=== PATIENT | female | born 1990 | race Caucasian/White ===

== ENCOUNTER 2020-05-01 13:03 | Outpatient (REF) | payer MEDICAID, SELFPAY ==
--- NOTE | 2020-05-01 13:09 | US_ITS ---
EXAMINATION: OBSTETRICAL ULTRASOUND, FIRST TRIMESTER HISTORY: 30-year-old at the 12.1 weeks of gestation NT screening COMPARISON: 03/25/2020 TECHNIQUE: Real time transabdominal imaging with color and M-mode Doppler. FINDINGS: A single, live IUP CRL of 51.5 mm c/w 11.6wks is noted. Heart Rate: 158 beats per minute. Normal yolk sac seen. NT was 0.76.mm. NB Present The embryo appears sonographically wnl for this GA. Left ovary is within normal limits. Right ovary could not be visualized. GESTATIONAL AGE: 1. Established GA: 12.1 wks 2. GA from [facility]: 11.6 wks ESTIMATED DATE OF DELIVERY: 1. Established YOBANI: 11/12/2020 2. YOBANI from [facility]: 11/14/2020 IMPRESSION: 1. A single live IUP 2. Size equals dates 3. NT of 0.76 mm MFM Consultation: I reviewed the ultrasound findings along with significance of NT measurement. The NT of less than 3mm is generally reassuring. However, the sensitivity for T21 detection is only 60%. I reviewed the availability of serum aneuploidy screening which includes cell-free DNA and placental protein based tests. I discussed the sensitivity, false-positive rate, and other limitations associated with each test. I also reviewed the availability of invasive diagnostic tests that are associated small but definite risk of miscarriage. We also reviewed the differences between screening tests and diagnostic tests. After our discussion, she opted for the First trimester screening that is based on cell-free DNA or non-invasive testing (NIPT). The result will be faxed to your office in approximately 7 days. A follow up at 18 weeks for survey has been scheduled. Thank you very much for this referral. Majority of this visit was spent reviewing her care and counselling her in face to face time: Time spent 20 min.
== END 2020-05-01 13:04 | disposition home or self-care (01) ==
LOC: HO.US 13:03
PROVIDERS: Visit Provider Advanced Practice Midwife
DX: Z34.91 Encounter for supervision of normal pregnancy, unspecified, first trimester (principal)
CPT/HCPCS: 76813

== ENCOUNTER 2020-05-07 09:00 | Outpatient (REF) | payer MEDICAID, SELFPAY ==
[2020-05-07 15:03] LABS: CT PCR NOT DETECTED (Not Detect.); NG PCR NOT DETECTED (Not Detect.)
[2020-05-08 15:33] LABS: BV Int Neg Control Negative (Negative); BV Int Pos Control Positive (Positive)
[2020-05-11 19:37] LABS: HPV mRNA E6/E7 Not Detected (Not Detected)
== END 2020-05-07 09:01 | disposition home or self-care (01) ==
LOC: HO.LAB 09:00
PROVIDERS: PCP Internal Medicine; Referring Provider Internal Medicine; Visit Provider Advanced Practice Midwife
DX: O99.210 Obesity complicating pregnancy, unspecified trimester (principal); Z3A.00 Weeks of gestation of pregnancy not specified
CPT/HCPCS: 87480; 87491; 87510; 87591; 87624; 87625; 87660; 88141; 88142

== ENCOUNTER 2020-05-19 10:11 | Outpatient (REF) | payer MEDICAID, SELFPAY ==
[2020-05-19 13:32] LABS: Glucose 1 Hour PP 50gm Dose 145 mg/dL (60-140)
== END 2020-05-19 10:12 | disposition home or self-care (01) ==
LOC: HO.LAB 10:11
PROVIDERS: PCP Internal Medicine; Visit Provider Advanced Practice Midwife
DX: Z13.89 Encounter for screening for other disorder (principal)

== ENCOUNTER 2020-05-26 06:32 | Outpatient (REF) | payer MEDICAID, SELFPAY ==
[2020-05-26 07:38] LABS: Glucose Fasting 83 mg/dL (60-99)
[2020-05-26 08:14] LABS: Glucose 1 Hour 127 mg/dL
[2020-05-26 09:49] LABS: Glucose 2 Hour 114 mg/dL
[2020-05-26 10:43] LABS: Glucose 3 Hour 100 mg/dL
== END 2020-05-26 06:33 | disposition home or self-care (01) ==
LOC: HO.LAB 06:32
PROVIDERS: Advanced Practice Midwife; PCP Internal Medicine; Visit Provider Advanced Practice Midwife
DX: O99.810 Abnormal glucose complicating pregnancy (principal)
CPT/HCPCS: 82951

== ENCOUNTER → 2020-06-04 08:49 | Outpatient (BNVA) | payer MEDICAID, SELFPAY | PROVIDERS: Visit Provider Advanced Practice Midwife | DX: Z76.89 Persons encountering health services in other specified circumstances (principal) ==

== ENCOUNTER 2020-06-19 15:27 | Outpatient (REF) | payer MEDICAID, SELFPAY ==
--- NOTE | 2020-06-19 15:31 | US_ITS ---
EXAMINATION: US OBSTETRICAL CLINICAL INFORMATION: 30-year-old at 18.3 weeks of gestation Suspected anomaly COMPARISON: 05/01/2020 TECHNIQUE: Real-time transabdominal ultrasound was performed using C1-5 megahertz transducer. FINDINGS: A single, active, fetus is seen in breech presentation. The placenta is posterior without previa, and the amniotic fluid volume is wnl. MEASUREMENTS: 1. Biparietal Diameter: 3.8 cm; 17.5 wks 2. Occipital Frontal Diameter: 5.6 cm 3. Head Circumference: 15.5 cm; 18.4 wks 4. Abdominal Circumference: 13.5 cm; 19.0 wks 5. Femur Length: 2.7 cm; 18.3 wks 6. Humerus Length: 2.6 cm; 18.1 wks 7. Tibia Length: 2.2 cm; 18.0 wks 8. Ulna Length: 2.4 cm; 18.4 wks 9. Lateral ventricle: 0.6 cm 10. Cerebellum: 1.9 cm; 19.5 wks 11. Cisterna Magna: 0.3 cm 12. Nuchal Fold: 4.1 mm 13. Heart Rate: 135 beats per minute Rt ovary: normal Lt ovary: normal Cervical length 4.1 cm on T/A. GESTATIONAL AGE: 1. Established GA: 19.1 wks 2. GA from [facility]: 18.3 wks ESTIMATED DATE OF DELIVERY: 1. Established YOBANI: 11/12/2020 2. YOBANI from [facility]: 11/17/2020 ANATOMY: The visualized anatomy includes but not limited to: 1. Cranium: Normal 2. Intracranial anatomy: cavum septum pellucidi, lateral ventricles, choroid plexus, cerebellum, posterior fossa, third and fourth ventricles. 3. face: orbits, lip/palate, profile, nasal bone 4. Heart: four-chamber view of the heart, ventricular septum, foramen ovale, pulmonary vein, left and right outflow tracts, three-vessel view, 3 vessel trachea view, aortic and ductal arches, situs.. 5. Diaphragm: Normal 6. Abdominal wall: Normal 7. Cord Insertion: Normal 8. Spine: Cervical, thoracic, lumbar, sacral. 9. Stomach: Normal size and shape 10. Right Kidney: Normal 11. Left Kidney: Normal 12. 3 vessel cord: Normal 13. Upper extremity: Open hands, fifth digit. 14. Lower extremity: Tibia, fibula, bilateral feet. 15. Bladder: Normal 16. Genitalia: Male, patient aware US/US OB /maternal detail IMPRESSION: 1. Single, living, intrauterine with appropriate biometry. 2. Normal survey DISCUSSION: I reviewed today's ultrasound findings. We discussed the limitations of ultrasound in diagnosing aneuploidy and other congenital abnormalities. I reviewed the differences between screening test and diagnostic test. Amniocentesis was discussed and declined. She was informed that the baseline incidence of congenital abnormalities is approximately 3-5%. Not all these conditions are diagnosable in utero. RECOMMENDATIONS: 1. Follow-up when necessary. Thank you for allowing me to participate in her care. Visiting time 25 minutes. Majority of this visit was spent reviewing and discussing her care.
== END 2020-06-19 15:28 | disposition home or self-care (01) ==
LOC: HO.US 15:27
PROVIDERS: Visit Provider Advanced Practice Midwife
DX: O35.9XX0 Maternal care for (suspected) fetal abnormality and damage, unspecified, not applicable or unspecified (principal); Z3A.18 18 weeks gestation of pregnancy
CPT/HCPCS: 76811

== ENCOUNTER → 2020-06-30 13:47 | Outpatient (BNVA) | payer MEDICAID, SELFPAY | PROVIDERS: Visit Provider Advanced Practice Midwife | DX: Z76.89 Persons encountering health services in other specified circumstances (principal) ==

== ENCOUNTER → 2020-07-28 10:33 | Outpatient (BNVA) | payer MEDICAID, SELFPAY | PROVIDERS: Visit Provider Advanced Practice Midwife | DX: Z34.92 Encounter for supervision of normal pregnancy, unspecified, second trimester (principal) | CPT/HCPCS: 81003; 99212 ==

== ENCOUNTER → 2020-08-05 15:46 | Outpatient (BNVA) | payer MEDICAID, SELFPAY | PROVIDERS: PCP Internal Medicine; Visit Provider Internal Medicine Pulmonary Disease | DX: G47.33 Obstructive sleep apnea (adult) (pediatric) (principal); E66.9 Obesity, unspecified | CPT/HCPCS: 99202 ==

== ENCOUNTER → 2020-08-24 15:12 | Outpatient (BNVA) | payer MEDICAID, SELFPAY | PROVIDERS: PCP Internal Medicine; Visit Provider Advanced Practice Midwife | DX: O36.60X0 Maternal care for excessive fetal growth, unspecified trimester, not applicable or unspecified (principal) | CPT/HCPCS: 81003; 99212 ==

== ENCOUNTER 2020-09-10 07:37 | Outpatient (REF) | payer MEDICAID, SELFPAY | END 2020-09-10 07:38 | disposition home or self-care (01) | LOC: HO.LAB 07:37 | PROVIDERS: PCP Internal Medicine; Visit Provider Advanced Practice Midwife | DX: Z34.93 Encounter for supervision of normal pregnancy, unspecified, third trimester (principal) | CPT/HCPCS: 81003; 90471; 90715; 99212 ==

== ENCOUNTER 2020-09-12 07:24 | Outpatient (REF) | payer MEDICAID, SELFPAY ==
[2020-09-12 08:00] LABS: Hematocrit 32.4 % (37-47); Hemoglobin 10.8 g/dl (12.0-16.0); Mean Corpuscular HGB Conc 33.3 g/dl (31.0-35.0); Mean Corpuscular Hemoglobin 28.7 pg (27.0-33.0); Mean Corpuscular Volume 86.2 fL (80-98); Mean Platelet Volume 9.9 fL (9.4-12.3); Platelet Count 261 X10*3/uL (160-400); Red Blood Count 3.76 X10*6/uL (4.20-5.50); Red Cell Distribution Width 13.9 % (11.0-16.0); White Blood Count 7.9 X10*3/uL (4.8-10.8)
[2020-09-12 08:18] LABS: Glucose Fasting 85 mg/dL (60-99)
[2020-09-12 09:19] LABS: Glucose 1 Hour 162 mg/dL
[2020-09-12 10:22] LABS: Glucose 2 Hour 129 mg/dL
[2020-09-12 11:36] LABS: Glucose 3 Hour 104 mg/dL
[2020-09-14 08:35] LABS: HIV AB/AG Nonreactive (Nonreactive); HIV Num 1 0.06 S/CO (0.00-0.99)
[2020-09-14 09:03] LABS: Syphilis Screen Nonreactive (Nonreactive)
== END 2020-09-12 07:25 | disposition home or self-care (01) ==
LOC: HO.LAB 07:24
PROVIDERS: Advanced Practice Midwife; PCP Internal Medicine; Visit Provider Advanced Practice Midwife
DX: Z34.92 Encounter for supervision of normal pregnancy, unspecified, second trimester (principal); Z20.2 Contact with and (suspected) exposure to infections with a predominantly sexual mode of transmission
CPT/HCPCS: 36415; 82951; 85027; 86780; 87389

== ENCOUNTER 2020-09-17 12:26 | Outpatient (REF) | payer MEDICAID, SELFPAY ==
--- NOTE | ~2020-09-17 | US_ITS ---
EXAMINATION: US OBSTETRICAL FOLLOWUP WITH BIOPHYSICAL PROFILE CLINICAL INFORMATION: Excessive growth. COMPARISON: Ultrasound OB 06/19/2020 TECHNIQUE: Real-time transabdominal imaging with color and M-mode Doppler. POSITION: Breech. PLACENTA: Posterior. AMNIOTIC FLUID INDEX: 21.74 cm MEASUREMENTS: The initial dating ultrasound dated provided an estimated date of delivery of 11/11/2020. This would project today to a of 32 weeks and 1 day. biometric measurements are as follows: Biparietal Diameter: 7.80 cm (31 weeks and 3 days) Occipital Frontal Diameter: 10.34 cm (32 weeks and 2 days) Head Circumference: 28.91 cm (31 weeks and 6 days) Abdominal Circumference: 28.34 cm (32 weeks and 3 days) Femur Length: 6131 cm (32 weeks and 5 days) The standard deviation for the above measurements is +/- 3 weeks. ESTIMATED WEIGHT: The EFW is 1962 grams +/- 287 grams (4 lbs 5 oz +/- 10 oz). This is at the 52 LMP percentile. BIOPHYSICAL PROFILE: Biophysical profile is performed over 30 minutes with assessment of breathing, gross body movement, tone, and qualitative amniotic fluid volume. Each matrix is scored 0 or 2, depending if the metric is present. Maximum total score possible is 8. Motion: 2 Tone: 2 Breathin Amniotic Fluid: 2 Total score: 8 HR: 163 bpm US/US OB follow up IMPRESSION: 1. Single intrauterine gestation in breech position with posterior placenta. 2. EFW: 1962 g. 3. ECHO: 21.74 cm. 4. BPP score: 8 (scale 0-8).
== END 2020-09-17 12:27 | disposition home or self-care (01) ==
LOC: HO.US 12:26
PROVIDERS: Visit Provider Advanced Practice Midwife
DX: O36.60X0 Maternal care for excessive fetal growth, unspecified trimester, not applicable or unspecified (principal)
CPT/HCPCS: 76816

== ENCOUNTER → 2020-09-25 10:39 | Outpatient (BNVA) | payer MEDICAID, SELFPAY | PROVIDERS: PCP Internal Medicine; Visit Provider Advanced Practice Midwife | DX: Z34.93 Encounter for supervision of normal pregnancy, unspecified, third trimester (principal); Z3A.33 33 weeks gestation of pregnancy | CPT/HCPCS: 81003; 99212 ==

== ENCOUNTER → 2020-10-09 15:09 | Outpatient (BNVA) | payer MEDICAID, SELFPAY | PROVIDERS: PCP Internal Medicine; Visit Provider Obstetrics & Gynecology | DX: Z34.93 Encounter for supervision of normal pregnancy, unspecified, third trimester (principal); Z3A.35 35 weeks gestation of pregnancy | CPT/HCPCS: 99212 ==

== ENCOUNTER 2020-10-23 14:52 | Outpatient (REF) | payer MEDICAID, SELFPAY ==
[2020-10-24 15:10] LABS: CT PCR NOT DETECTED (Not Detect.); NG PCR NOT DETECTED (Not Detect.)
== END 2020-10-23 14:53 | disposition home or self-care (01) ==
LOC: HO.LAB 14:52
PROVIDERS: PCP Internal Medicine; Visit Provider Advanced Practice Midwife
DX: Z34.93 Encounter for supervision of normal pregnancy, unspecified, third trimester (principal)
CPT/HCPCS: 81003; 87081; 87491; 87591; 99212

== ENCOUNTER → 2020-10-30 14:38 | Outpatient (BNVA) | payer MEDICAID, SELFPAY | PROVIDERS: PCP Internal Medicine; Visit Provider Advanced Practice Midwife | DX: Z34.93 Encounter for supervision of normal pregnancy, unspecified, third trimester (principal); Z3A.38 38 weeks gestation of pregnancy | CPT/HCPCS: 81003; 99212 ==

== ENCOUNTER → 2020-11-06 13:35 | Outpatient (BNVA) | payer MEDICAID, SELFPAY | PROVIDERS: PCP Internal Medicine; Visit Provider Advanced Practice Midwife | DX: Z34.93 Encounter for supervision of normal pregnancy, unspecified, third trimester (principal); Z3A.39 39 weeks gestation of pregnancy | CPT/HCPCS: 81003; 99212 ==

== ENCOUNTER → 2020-11-13 14:53 | Outpatient (BNVA) | payer MEDICAID, SELFPAY | PROVIDERS: Visit Provider Advanced Practice Midwife | DX: Z34.93 Encounter for supervision of normal pregnancy, unspecified, third trimester (principal); Z3A.40 40 weeks gestation of pregnancy | CPT/HCPCS: 81003; 99212 ==

== ENCOUNTER → 2021-02-02 13:02 | Outpatient (BNVA) | payer MEDICAID, SELFPAY | PROVIDERS: Visit Provider Advanced Practice Midwife | DX: Z39.1 Encounter for care and examination of lactating mother (principal); O99.215 Obesity complicating the puerperium; Z30.011 Encounter for initial prescription of contraceptive pills; Z30.012 Encounter for prescription of emergency contraception; Z79.899 Other long term (current) drug therapy | CPT/HCPCS: 99212 ==

== ENCOUNTER 2021-08-03 12:02 | Outpatient (REF) | payer MEDICAID, SELFPAY ==
[2021-08-05 20:51] LABS: TS Negative Control Passed; TS Panel A 0; TS Panel B 1; TS Positive Control Passed; TSpotTB Negative (Negative)
== END 2021-08-03 12:03 | disposition home or self-care (01) ==
LOC: HO.10HDL 12:02
PROVIDERS: Visit Provider Internal Medicine
DX: Z02.1 Encounter for pre-employment examination (principal); Z11.0 Encounter for screening for intestinal infectious diseases
CPT/HCPCS: 36415; 86481

== ENCOUNTER 2022-10-19 10:05 | Outpatient (REF) | payer MEDICAID, SELFPAY ==
[2022-10-19 10:49] LABS: MANUAL DIFF FLAG NO
[2022-10-19 11:06] LABS: Basophils Absolute Auto 0.1 X10*3/uL (0.0-0.2); Basophils Percent Auto 0.5 % (0-2); Eosinophils Absolute Auto 0.5 X10*3/uL (0.0-0.4); Eosinophils Percent Auto 4.8 % (0-4); Hemoglobin 13.5 g/dl (12.0-16.0); Imm Gran Abs Auto 0.02 X10*3/uL (0.00-0.03); Imm Gran Pct Auto 0.2 % (0.0-0.4); Lymphocytes Absolute Auto 2.9 X10*3/uL (1.2-4.9); Mean Corpuscular HGB Conc 32.9 g/dl (31.0-35.0); Mean Corpuscular Hemoglobin 27.1 pg (27.0-33.0); Mean Corpuscular Volume 82.3 fL (80.0-98.0); Monocytes Absolute Auto 0.5 X10*3/uL (0.1-1.2); Monocytes Percent Auto 5.4 % (2-11); Neutrophils Absolute Auto 5.7 x10*3/uL (2.0-8.3); Neutrophils Percent Auto 59.1 % (45-73); Platelet Count 326 X10*3/uL (160-400); Red Blood Count 4.98 X10*6/uL (4.20-5.50); Red Cell Distribution Width 13.8 % (11.0-16.0); White Blood Count 9.6 X10*3/uL (4.8-10.8)
[2022-10-19 11:14] LABS: Estimated Average Glucose 108 mg/dL; Hemoglobin A1c % 5.4 %
[2022-10-19 11:30] LABS: Alanine Aminotransferase 24 U/L (0-31); Albumin Level 4.2 g/dL (3.5-5.0); Alkaline Phosphatase 126 U/L (39-117); Anion Gap 11 (12-20); Aspartate Amino Transferase 20 U/L (5-31); Bilirubin Total 0.4 mg/dL (0.0-1.0); Blood Urea Nitrogen 9 mg/dL (9-16); Calcium 9.1 mg/dL (8.4-10.2); Carbon Dioxide 27 mmol/L (22-29); Chloride 109 mmol/L (96-108); Estimated Glomerular Filt Rate > 60; Glucose Random 86 mg/dL (60-115); Potassium 4.1 mmol/L (3.3-5.1); Sodium 143 mmol/L (135-145)
[2022-10-19 11:49] LABS: Free T4 (Free Thyroxine) 0.89 ng/dL (0.71-1.85); Thyroid Stimulating Hormone 1.07 uIU/mL (0.32-4.0)
== END 2022-10-19 10:06 | disposition home or self-care (01) ==
LOC: HO.10HDL 10:05
PROVIDERS: Visit Provider Internal Medicine
DX: I10 Essential (primary) hypertension (principal); R42 Dizziness and giddiness; Z86.32 Personal history of gestational diabetes; Z83.49 Family history of other endocrine, nutritional and metabolic diseases
CPT/HCPCS: 36415; 80053; 83036; 84439; 84443; 85025; 86140

== ENCOUNTER 2022-11-02 11:54 | Outpatient (REF) | payer MEDICAID, SELFPAY ==
[2022-11-02 13:41] LABS: MANUAL DIFF FLAG NO
[2022-11-02 13:50] LABS: Basophils Percent Auto 0.5 % (0-2); Eosinophils Absolute Auto 0.4 X10*3/uL (0.0-0.4); Eosinophils Percent Auto 4.9 % (0-4); Hematocrit 41.8 % (37.0-47.0); Hemoglobin 13.4 g/dl (12.0-16.0); Imm Gran Abs Auto 0.02 X10*3/uL (0.00-0.03); Imm Gran Pct Auto 0.2 % (0.0-0.4); Lymphocytes Absolute Auto 2.2 X10*3/uL (1.2-4.9); Lymphocytes Percent Auto 25.3 % (20-40); Mean Corpuscular HGB Conc 32.1 g/dl (31.0-35.0); Mean Corpuscular Hemoglobin 27.1 pg (27.0-33.0); Mean Corpuscular Volume 84.4 fL (80.0-98.0); Mean Platelet Volume 10.4 fL (9.4-12.3); Monocytes Absolute Auto 0.5 X10*3/uL (0.1-1.2); Monocytes Percent Auto 6.1 % (2-11); Neutrophils Absolute Auto 5.6 x10*3/uL (2.0-8.3); Platelet Count 328 X10*3/uL (160-400); Red Blood Count 4.95 X10*6/uL (4.20-5.50); Red Cell Distribution Width 13.8 % (11.0-16.0); White Blood Count 8.8 X10*3/uL (4.8-10.8)
[2022-11-02 15:30] LABS: Anion Gap 12 (12-20); Blood Urea Nitrogen 12 mg/dL (9-16); Calcium 9.1 mg/dL (8.4-10.2); Carbon Dioxide 24 mmol/L (22-29); Chloride 110 mmol/L (96-108); Estimated Glomerular Filt Rate > 60; Glucose Random 77 mg/dL (60-115); Potassium 4.1 mmol/L (3.3-5.1); Sodium 142 mmol/L (135-145)
[2022-11-02 15:40] LABS: Free T4 (Free Thyroxine) 0.92 ng/dL (0.71-1.85)
== END 2022-11-02 11:55 | disposition home or self-care (01) ==
LOC: HO.10HDL 11:54
PROVIDERS: Visit Provider Internal Medicine
DX: J45.909 Unspecified asthma, uncomplicated (principal); E04.9 Nontoxic goiter, unspecified
CPT/HCPCS: 36415; 80048; 84439; 84443; 85025

== ENCOUNTER → 2023-10-05 09:29 | Outpatient (BNVA) | payer MEDICAID, SELFPAY | PROVIDERS: PCP Internal Medicine; Visit Provider Physician Assistant Surgical ==

== ENCOUNTER 2023-10-25 12:47 | Outpatient (AMB) | payer MEDICAID, SELFPAY ==
--- OUTSIDE RECORDS SUMMARY | 2023-10-25 12:49 | XMS_ITS | Continuity of Care Document ---
[facility] Address [address] [place] [address]- Care Team Providers Care Channel Process Supervisor Name Role Phone Julio César Sandoval MD Primary Care Physician [phone] Encounter [facility] Date(s): 03/31/20 - 04/07/20 [facility] [employer] [facility] [address] [place] [address]- [facility] Attending Physician: Sharif STEWART, Dina Montana Referring Physician: Not on Staff, Referring MD Allergies, Adverse Reactions, Alerts No Known Medication Allergies Medications 19 ([place]) oral tablet 1 tablet, By Mouth, Daily, # 30 tablet, 0 Refills, Maintenance, 03/31/20 15:52:00 EDT Start Date: 03/31/20 Status: Ordered Problem List Condition Effective Dates Status Health Status Inform ant Anxiety(Confirmed) 2016 Active Asthma(Confirmed) 1996 Active Headache(Confirmed) 2014 Active History of abnormal cervical Pap smear(Confirmed) 2008 Active History of chlamydia(Confirmed) 2008 Active History of gestational hypertension(Confirmed) 2013 Active Chronic hypertension(Confirmed) 2020 Active Migraine(Confirmed) 2015 Active Obesity(Confirmed) 2020 Active Obstructive sleep apnea(Confirmed) 2019 Active 1Monitored after abnormal and then normal Procedures Procedure Date Related Diagnosis Body Site Status Vaginal delivery 2012 Complete d Vaginal delivery 2007 Complete d Vital Signs Most recent to oldest [Reference Range]: 1 Height 162 cm (03/31/20 3:05 PM) Weight 94.8 kg (03/31/20 3:05 PM) Body Mass Index [18.5-24.99] 36.12 *>HHI* (03/31/20 3:05 PM) Dry Weight 93 kg (03/31/20 3:05 PM) Social History Social History Type Response Smoking Status Never (less than 100 in lifetime); Tobacco user in household: No entered on: 03/31/20 Sex
--- NOTE | 2023-10-25 13:00 | MHC.OFFVISWM ---
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 BMI 40.0 HPI Details Start time: 1.07pm, End time: 2.07pm ?I spent 50 minutes speaking with the patient on the phone plus an additional 10 minutes reviewing and updating records for a total of 60 minutes HPI Comments History of Present Illness Details Previous weight loss efforts: self diets Wakes up: 6am, Sleeps: 10pm Breakfast: 8am (oatmeal) Lunch: 12pm (sandwich) Dinner: 7pm (chicken, rice) Snacks: 3pm (popcorn) Exercise: none Fluids: Coffee: (1 cup/day), tea: none, soda: regular Pepsi (1-2 cans per day), juice (orange juice, 1 glass/day), ETOH: none PFSH Medical History (Updated 10/25/23 @ 13:58 by Efrain Bentley MD) Gestational diabetes Obstructive sleep apnea on CPAP Hypertension Morbid obesity Obstetrical visit for first Abnormal glucose affecting Obesity (BMI 30-39.9) Abnormal Pap smear of cervix Surgical History No history of previous surgery Family History Maternal Grandfather Diabetes mellitus Maternal Grandmother HTN (hypertension) Mother HTN (hypertension) Social History (Updated 10/05/23 @ 09:58 by Shahana Reeves CMA) Alcohol intake: never Patient Tobacco Use Status: Never used Tobacco Gender identity: Female Female Reproductive History Menstrual Age of Menarche: 10 Assessment & Plan Assessment & Plan (1) Morbid obesity: Code(s): E66.01 - Morbid (severe) obesity due to excess calories Plan: 1.? Plan for lap sleeve gastrectomy. If diaphragmatic or ventral hernias are present at time of surgery, these will be repaired laparoscopically as well. Risks and complications were discussed in detail including possible conversion to an open procedure, anastomotic leak, bleeding requiring transfusion, small bowel obstruction, , DVT and pulmonary embolism, cardiac, or pulmonary complications, as senior care complications such as anastomotic ulcer, insufficient weight loss and vitamin deficiencies. I emphasized the importance of close follow-up, adherence to instructions and good communication. 2. Nutritional counseling. Start with 2 Isopure INFUSIONS protein (buy at [employer], [employer], [employer], [employer]) shakes (1/2 scoop in 8oz water each) at 7am-9am and 10am-12pm, 2 protein bars (Zone Perfect protein bars, buy at [employer], ?[employer], [employer], or [employer]) at 1pm-3pm and 4pm-6pm, dinner at 7pm (8 forks of protein and 8 forks of salad/vegetables). If you feel hungry you can have another HALF protein bar at 9pm-10pm. So you do 2 protein shakes, 2 to 2.5 protein bars and one meal per day. Meal to include lean meat (beef, fish, pork, turkey, chicken), or spanish yogurt, or egg whites, or beans with a salad with olive oil and fruits (berries, pears, apples, kiwi). Avoid salt, breads, potatoes, rice, pasta, desserts. 3. Each shake would be drunk slowly, like coffee in a period of 2 hours. 4. Cut each bar in 4 pieces and eat each piece in 30min ?to make each bar last 2 hours. 5. I emphasized the importance of measuring accurately the food portion and measure it when serving the food in plate 6. The meal portions include 8 full-size forks of meat and 8 full-size forks of salad. You always eat the meat portion but you can replace up to 4 forks for salad/vegetables with rice, potatoes or pasta, or a fruit ?if you like. The less you do it the better weight loss will be. 7. One full-size fork is what it can be scooped on the fork without falling aside and not what can be bit with the fork. Use regular forks like those you find in a typical restaurant. 8.? Please send me weight measurements as soon as possible and then once a week. Always include your diet and exercise plan. 9. The best choice would be to purchase a stationary bike, elliptical or treadmill at home that can track calories. Let me know if you do so I can give you an exercise plan. 10.?It is important of avoiding and for at least 18 months postoperatively and has been discussed at the infosession. 11. Goal is to lose at least 1.5-2lbs per week 12. Goal to lose 10% of your weight before surgery, which is about 22lbs. Ultimate weight goal: 204lbs before surgery 13. Please follow the diet plan exactly without any change. If you don't like something about the plan or you feel hungry you need to communicate with me so I can help you revise the plan. You should not change the plan yourself. Orders: Orders Insulin Today E66.01 - Morbid (severe) obesity due to excess calories, G47.33 - Obstructive sleep apnea (adult) (pediatric), I10 - Essential (primary) hypertension H Pylori Breath Test Today E66.01 - Morbid (severe) obesity due to excess calories, G47.33 - Obstructive sleep apnea (adult) (pediatric), I10 - Essential (primary) hypertension Complete Blood Count Auto Diff Today E66.01 - Morbid (severe) obesity due to excess calories, G47.33 - Obstructive sleep apnea (adult) (pediatric), I10 - Essential (primary) hypertension IRON PROFILE Today E66.01 - Morbid (severe) obesity due to excess calories, G47.33 - Obstructive sleep apnea (adult) (pediatric), I10 - Essential (primary) hypertension Comprehensive Met. Panel Today E66.01 - Morbid (severe) obesity due to excess calories, G47.33 - Obstructive sleep apnea (adult) (pediatric), I10 - Essential (primary) hypertension Zinc Today E66.01 - Morbid (severe) obesity due to excess calories, G47.33 - Obstructive sleep apnea (adult) (pediatric), I10 - Essential (primary) hypertension C Reactive Protein Today E66.01 - Morbid (severe) obesity due to excess calories, G47.33 - Obstructive sleep apnea (adult) (pediatric), I10 - Essential (primary) hypertension Vitamin B1 Today E66.01 - Morbid (severe) obesity due to excess calories, G47.33 - Obstructive sleep apnea (adult) (pediatric), I10 - Essential (primary) hypertension Ferritin Today E66.01 - Morbid (severe) obesity due to excess calories, G47.33 - Obstructive sleep apnea (adult) (pediatric), I10 - Essential (primary) hypertension Vitamin D 25-OH Total Today E66.01 - Morbid (severe) obesity due to excess calories, G47.33 - Obstructive sleep apnea (adult) (pediatric), I10 - Essential (primary) hypertension US abdomen comp w elastography Today E66.01 - Morbid (severe) obesity due to excess calories, G47.33 - Obstructive sleep apnea (adult) (pediatric), I10 - Essential (primary) hypertension XR chest 2V Today E66.01 - Morbid (severe) obesity due to excess calories, G47.33 - Obstructive sleep apnea (adult) (pediatric), I10 - Essential (primary) hypertension ECG 12 lead EKG Today E66.01 - Morbid (severe) obesity due to excess calories, G47.33 - Obstructive sleep apnea (adult) (pediatric), I10 - Essential (primary) hypertension FL upper GI w air Today E66.01 - Morbid (severe) obesity due to excess calories, G47.33 - Obstructive sleep apnea (adult) (pediatric), I10 - Essential (primary) hypertension Hemoglobin A1c Today E66.01 - Morbid (severe) obesity due to excess calories, G47.33 - Obstructive sleep apnea (adult) (pediatric), I10 - Essential (primary) hypertension Lipid Panel Today E66.01 - Morbid (severe) obesity due to excess calories, G47.33 - Obstructive sleep apnea (adult) (pediatric), I10 - Essential (primary) hypertension Vitamin B12 and Folate Today E66.01 - Morbid (severe) obesity due to excess calories, G47.33 - Obstructive sleep apnea (adult) (pediatric), I10 - Essential (primary) hypertension Vitamin A Today E66.01 - Morbid (severe) obesity due to excess calories, G47.33 - Obstructive sleep apnea (adult) (pediatric), I10 - Essential (primary) hypertension TSH reflex Free T4 Today E66.01 - Morbid (severe) obesity due to excess calories, G47.33 - Obstructive sleep apnea (adult) (pediatric), I10 - Essential (primary) hypertension RT home sleep study Today E66.01 - Morbid (severe) obesity due to excess calories, G47.33 - Obstructive sleep apnea (adult) (pediatric), I10 - Essential (primary) hypertension Referrals Nutrition/Dietitian Referral E66.01 - Morbid (severe) obesity due to excess calories, G47.33 - Obstructive sleep apnea (adult) (pediatric), I10 - Essential (primary) hypertension Behavioral Health Referral E66.01 - Morbid (severe) obesity due to excess calories, G47.33 - Obstructive sleep apnea (adult) (pediatric), I10 - Essential (primary) hypertension Telehealth Telehealth Location of provider rendering services: practice address Location of patient: address on file Patient Identification confirmed using: Name, : Yes Telehealth method: voice only Patient verbally consented to treatment: Yes Patient verbally consented to billing insurance company: Yes Patient informed of any privacy concerns related to visit: Yes Minutes spent on Phone/Video with Pt.: 60 Coding Level of Care Code Tele New Pt Level 5 (34235) Diagnoses Morbid obesity E66.01 Time Spent (min) 60
[2023-10-25 13:53] VITALS: BMI 40.0
== END 2023-10-25 14:08 | disposition home or self-care (01) ==
LOC: HO.HBS 12:47
PROVIDERS: PCP Internal Medicine; Visit Provider Surgery
DX: E66.01 Morbid (severe) obesity due to excess calories (principal); Z68.41 Body mass index [BMI] 40.0-44.9, adult
CPT/HCPCS: 99205

== ENCOUNTER → 2023-10-25 12:47 | Outpatient (BNVA) | payer MEDICAID, SELFPAY | PROVIDERS: PCP Internal Medicine; Visit Provider Surgery ==

== ENCOUNTER 2023-11-13 13:38 | Outpatient (AMB) | payer OTHER, SELFPAY ==
--- NOTE | 2023-11-13 13:02 | A.OFFWM_ITS ---
Intake Intake Visit Reasons: TV BH Intake Allergies No Known Allergies Allergy (Unknown, Verified 10/25/23 13:56) UNKNOWN [facility] Medical History (Updated 10/25/23 @ 13:58 by Efrain Bentley MD) Gestational diabetes Obstructive sleep apnea on CPAP Hypertension Morbid obesity Obstetrical visit for first Abnormal glucose affecting Obesity (BMI 30-39.9) Abnormal Pap smear of cervix Surgical History No history of previous surgery Family History Maternal Grandfather Diabetes mellitus Maternal Grandmother HTN (hypertension) Mother HTN (hypertension) Social History (Updated 10/05/23 @ 09:58 by Shahana Reeves [facility]) Alcohol intake: never Patient Tobacco Use Status: Never used Tobacco Gender identity: Female Female Reproductive History Menstrual Age of Menarche: 10 Behavioral Health Assessment Weight Management Therapy Therapy Notes Details Pt is looking to have weight loss surgery to help improve her health and quality of life. Currently not in therapy however was as a teenager. Has never been prescribed or diagnosed with any mental health issues. No history of alcohol or drug abuse or suspected to have an eating disorder. Presenting Concerns Referral Source provider Reason for referral weight loss surgery evaluation Precipitating Event obesity Living Situation Current Living Situation Rent At risk of losing current housing? No Satisfied with current living situation? Yes Comments Patient lives with her and 4 children ages 16, 10, 3, and 1.5 yr old. Food/Weight/Diet Expectations of change weight loss and maintenance History/Relationship with food Sometimes would skip breakfast, other days would stop at [employer] or [employer]. Lunch they would order out at work everyday. Dinner would usually would be cooked at home, rice, beans, chicken, meat, sometimes salad, mashed potatoes, would go through periods of time when she would have soda but usually water. History/Relationship with weight Started to struggle with her weight after her second child History/Relationship with dieting no real dieting before, would try to but no consistency Binge Eating Do you frequently eat large amounts of food in short periods of time, not feeling physically hungry? No Do you feel out of control when you eat a large amount of food in a short period of time? No Do you eat large amounts of food rapidly and typically alone? Yes Night Eating Do you wake up at least once during the night to eat? No If you wake up in the night, do you find that it is necessary to eat something in order to fall back asleep? No Do you have little or no appetite in the morning and feel very hungry in the evening, often overeating between dinner and when you go to bed? No Social History Family history and relationship Pt was born in [place] and came here at age 2 ([place]) at age 8 she moved back to [place] and then at age 10 moved back to this area. She was raised by her mother and three brothers. 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 none Education Highest grade completed 11th grade Preferred learning style Auditory, Verbal, Written, Learn by doing and Visual Currently enrolled in educational program? No Interested in further educational program? 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 No Meaningful activities spending time outdoors, Financial Situation Describe current financial situation Occasional struggle Financial assistance? None Service Service? No Mental Health and Addiction Treatment Current/Past substance abuse? No Current/Past addictive behavior concerns? No Medical and Physical Health Summary Physical exam in the last year? Yes Pain Screening Current pain? No Pain in the last few months? No Medications Is the patient compliant with medications? Yes Does the patient have Lucero Guardian in place? Not applicable Does the patient use complimentary health approaches? No Trauma/Abuse History History of trauma? No Questionnaires PHQ-9 Over the last 2 weeks, how often have you been bothered by any of the following problems? 1. Little interest or pleasure in doing things: not at all 2. Feeling down, depressed, or hopeless: not at all 3. Trouble falling or staying asleep, or sleeping too much: several days 4. Feeling tired or having little energy: more than half the days 5. Poor appetite or overeating: several days 6. Feeling bad about yourself - or that you are a failure or have let yourself or your family down: not at all 7. Trouble concentrating on things, such as reading the newspaper or watching television: not at all 8. Moving or speaking so slowly that other people could have noticed. Or the opposite - being so fidgety or restless that you have been moving around a lot more than usual: not at all 9. Thoughts that you would be better off or of hurting yourself in some way: not at all Total score: 4 Source: Developed by Drs. Álvaro Ma, Bonny Adler, Jurgen Sykes and colleagues, with an educational maikol from [employer]. Binge Eating Scale Group 1 A. I don't feel self-conscious about my wt. or body size when I'm with others. B. I feel concerned about how I look to others, but it normally does not make me fell disappointed with myself C. I do get self-conscious about my appearance and wt. which makes me feel disappointed in myself. D. I feel very self-conscious about my wt. and frequently I feel intense shame and disgust for myself. I try to avoid social contacts because of my self- consciousness. Response Group 1: C Group 2 A. I don't have any difficulty eating slowly in the proper manner. B. Although I seem to gobble down foods, I don't end up feeling stuffed because of eating to much. C. At times, I tend to eat quickly and then, I feel uncomfortably full afterwards. D. I have the habit of bolting down my food, without really chewing it. When this happens I usually feel uncomfortably stuffed because I've eaten to much. Response Group 2: D Group 3 A. I feel capable to control my eating urges when I want to. B. I feel like I have failed to control my eating more than the average person. C. I feel utterly helpless when it comes to feeling in control of my eating urges. D. Because I feel so helpless about controlling my eating I have become very desperate about trying to get control. Response Group 3: B Group 4 A. I don't have the habit of eating when I'm bored. B. I sometimes eat when I'm bored, but often I'm able to get busy and get my mind off food. C. I have a regular habit of eating when I'm bored, but occasionally, I can use some other activity to get my mind off eating. D. I have a strong habit of eating when I'm bored. Nothing seems to help me breath the habit. Response Group 4: B Group 5 A. I'm usually physically hungry when I eat something. B. Occasionally, I eat something on impulse even though I really am not hungry. C. I have the regular habit of eating foods, that I might not really enjoy, to satisfy a hungry feeling even though physically, I don't need the food. D. Although I'm not physically hungry, I get a hungry feeling in my mouth that only seems to be satisfied when I eat a food, like sandwich, that fills my mouth. Sometimes, when I eat the food to satisfy my mouth hunger, I then spit the food out so I won't gain weight. Response Group 5: B Group 6 A. I don't feel any guilt or self-hate after I overeat. B. After I overeat, occasionally I feel guilt or self-hate. C. Almost all the time I experience strong guilt or self-hate after I overeat. Response Group 6: B Group 7 A. I don't lose total control of my eating when dieting even after periods when I overeat. B. Sometimes when I eat a forbidden food on a diet, I feel like I blew it and eat even more. C. Frequently, I have the habit of saying to myself, I've blown it now, why not go all the way, when I overeat on a diet. When that happens I eat more. D. I have a regular habit of starting a strict diets for myself but I break the diets by going on an eating binge. My life seems to be either a feast or famine. Response Group 7: A Group 8 A. I rarely eat so much food that I feel uncomfortably stuffed afterwards. B. Usually about once a month, I each such a quantity of food, I end up feeling very stuffed. C. I have regular periods during the month when I eat large amounts of food, either at mealtime or at snacks. D. I eat so much food that I regularly feel quite uncomfortable after eating and sometimes a bit nauseous. Response Group 8: A Group 9 A. My level of calorie intake does not go up very high or go down very low on a regular basis. B. Sometimes after I overeat, I will try to reduce my caloric intake to almost nothing to compensate for the excess calories I've eaten. C. I have a regular habit of overeating during the night. It seems that my routine is not to be hungry in the morning but overeat in the evening. D. In my adult years, I have had week-long periods where I practically starve myself. This follows periods when I overeat. It seems I live a life of either feast or famine. Response Group 9: B Group 10 A. I usually am able to stop eating when I want to. I know when enough is enough. B. Every so often, I experience a compulsion to eat which I can't seem to control. C. Frequently, I experience strong urges to eat which I seem unable to control, but at other times I can control my eating urges. D. I feel incapable of controlling urges to eat. I have a fear of not being able to stop eating voluntarily. Response Group 10: A Group 11 A. I don't have any problem stopping eating when I feel full. B. I usually can stop eating when I feel full but occasionally overeat leaving me feeling uncomfortably stuffed. C. I have a problem stopping eating once I start and usually I feel uncomfortably stuffed after I eat a meal. D. Because I have a problem not being able to stop eating when I want, I s ometimes have to induce vomiting to relieve my stuffed feeling. Response Group 11: B Group 12 A. I seem to eat just as much when I'm with others, Family social gatherings as when I'm by myself. B. Sometimes, when I'm with other persons, I don't eat as much as I want to eat because I'm self-conscious about my eating. C. Frequently, I eat only a small amount of food when others are present, because I'm very embarrassed about my eating. D. I feel so ashamed about overeating that I pick times to overeat when I know no one will see me. I feel like a closet eater. Response Group 12: B Group 13 A. I eat three meals a day with only an occasional between meal snack. B. I eat 3 meals a day, but I also normally snack between meals. C. When I am snacking heavily, I get in the habit of skipping regular meals. D. There are regular periods when I seem to be continually eating, with no planned meals. Response Group 13: B Group 14 A. I don't think much about trying to control unwanted eating urges. B. At least some of the time, I feel my thoughts are pre-occupied with trying to control my eating urges. C. I feel that frequently I spend much time thinking about how much I ate or about trying not to eat anymore. D. It seems to me that most of my waking hours are pre-occupied by thoughts about eating or not eating. I feel like I'm constantly struggling not to eat. Response Group 14: B Group 15 A. I don't think about food a great deal. B. I have strong craving for food but they last only for brief periods of time. C. I have days when I can't seem to think about anything else but food. D. Most of my days seem to be pre-occupied with thoughts about food. I feel like I live to eat. Response Group 15: B Group 16 A. I usually know whether or not I'm physically hungry. I take the right portion of food to satisfy me. B. Occasionally, I feel uncertain about knowing whether or not I'm physically hungry. A these times it's hard to know how much food I should take to satisfy me. C. Even though I might know how many calories I should eat, I don't have any idea what is a normal amount of food for me. Response Group 16: B Binge Eating Score: 16 Score less than 17 Minimal Risk Score between 18-26 Moderate Risk Score between 27-46 High Risk Assessment & Plan Assessment & Plan (1) Morbid obesity: Code(s): E66.01 - Morbid (severe) obesity due to excess calories (2) Hypertension: Code(s): I10 - Essential (primary) hypertension Plan Pt is cleared for surgery. She has no major barriers and no mental health history. Telehealth Telehealth Telehealth Platform: Telephone Location of provider rendering services: other Location of patient: other Patient Identification confirmed using: Name, : Yes Telehealth method: voice only Patient verbally consented to treatment: Yes Patient verbally consented to billing insurance company: Yes Patient informed of any privacy concerns related to visit: Yes Minutes spent on Phone/Video with Pt.: 40 Coding Level of Care Code Tele Psy Diag Eval (89991) Diagnoses Morbid obesity E66.01 Hypertension I10 Time Spent (min) 40
== END 2023-11-13 13:59 | disposition home or self-care (01) ==
LOC: HO.HBST 13:38
PROVIDERS: PCP Internal Medicine; Visit Provider Counselor Mental Health
DX: E66.01 Morbid (severe) obesity due to excess calories (principal); I10 Essential (primary) hypertension
CPT/HCPCS: 90834

== ENCOUNTER → 2023-11-13 13:38 | Outpatient (BNVA) | payer MEDICAID, SELFPAY | PROVIDERS: PCP Internal Medicine; Visit Provider Counselor Mental Health | DX: E66.01 Morbid (severe) obesity due to excess calories (principal); I10 Essential (primary) hypertension ==

== ENCOUNTER 2023-11-22 07:39 | Day surgery (SDC) | payer MEDICAID, SELFPAY ==
[2023-11-20 14:19] VITALS: BMI 40.0
--- NOTE | 2023-11-20 14:45 | HO.ANESPROP2 ---
Documented by User: Ashli Nino NP 11/20/23 14:45 HPI - Anesthesia Eval Consult details Narrative: 33yo F for Upper Endoscopy PMFSH Active Problems Active Problems: All Active Problems Obstructive sleep apnea on CPAP (Acute) Hypertension (Acute) Morbid obesity (Acute) Counseling for control, emergency contraceptive prescription (Acute) BCP ( control pills) initiation (Acute) care and examination of lactating mother (Acute) Supervision of normal in third trimester (Acute) INDRA (obstructive sleep apnea) (Acute) Supervision of normal in second trimester (Acute) Abnormal glucose affecting (Acute) Obesity (BMI 30-39.9) (Acute) History of abnormal cervical Pap smear (Acute) (Acute) Past Medical History Medical History Gestational diabetes Obstructive sleep apnea on CPAP Hypertension Morbid obesity Obstetrical visit for first Abnormal glucose affecting Obesity (BMI 30-39.9) Abnormal Pap smear of cervix Family History Family History Maternal Grandfather Diabetes mellitus Maternal Grandmother HTN (hypertension) Mother HTN (hypertension) Surgical History Surgical History No history of previous surgery Social History Social History Alcohol intake: never Patient Tobacco Use Status: Never used Tobacco Advance Directives: No (unknown) Advance Directives Information Provided: Yes Gender identity: Female Meds Allergies Allergy/AdvReac Type Severity Reaction Status Date / Time No Known Allergies Allergy Unknown UNKNOWN Verified 11/22/23 08:05 Home Medications ?Medication ?Instructions ?Recorded ?Confirmed ?Last Taken ?Type hydrochlorothiazide 12.5 mg capsule 12.5 mg PO DAILY 10/05/23 11/22/23 Unknown History Exam Height,Weight and Vital Signs: Height 5 ft 3 in Weight 102.512 kg Assessment and Plan Assessment Anesthesia Assessment: Chart Reviewed Documented by User: Shirin Erazo MD 11/22/23 08:23 [facility] Past Medical History Medical History Gestational diabetes Obstructive sleep apnea on CPAP Hypertension Morbid obesity Obstetrical visit for first Abnormal glucose affecting Obesity (BMI 30-39.9) Abnormal Pap smear of cervix Family History Family History Maternal Grandfather Diabetes mellitus Maternal Grandmother HTN (hypertension) Mother HTN (hypertension) Surgical History Surgical History No history of previous surgery History of Problems with Anesthesia: No Social History Social History Alcohol intake: never Patient Tobacco Use Status: Never used Tobacco Advance Directives: No (unknown) Advance Directives Information Provided: Yes Gender identity: Female Meds Allergies Allergy/AdvReac Type Severity Reaction Status Date / Time No Known Allergies Allergy Unknown UNKNOWN Verified 11/22/23 08:05 Home Medications ?Medication ?Instructions ?Recorded ?Confirmed ?Last Taken ?Type hydrochlorothiazide 12.5 mg capsule 12.5 mg PO DAILY 10/05/23 11/22/23 Unknown History Exam Airway Mallampati Class: II TM Dist: >3cm Neck ROM: Full Loose/Missing/Broken Teeth: No Heart: RRR Lungs: CTA Assessment and Plan Assessment Anesthesia Assessment: Anesthesia Plan Discussed Final Anesthetic Review History of Problems with Anesthesia: No NPO: Yes ASA Class: III Patient Risk: Intermediate Procedure Risk: Intermediate Anesthetic Plan Anesthetic Plan: MAC: Disposition: Standard PACU
[2023-11-22 08:04] VITALS: BMI 38.6
[2023-11-22 08:18] VITALS: BP 169/98; PULSE 86; RESP 16; TEMP 36.2; O2SAT 95
[2023-11-22 08:20] LABS: UPreg QC Valid YES; Urine Pregnancy NEGATIVE (NEGATIVE)
[2023-11-22] MEDS: Lactated Ringers 1,000 ML 80 ML IVCONT (08:29)
--- NOTE | 2023-11-22 08:47 | P.HPSUR_ITS ---
Pre-Procedural Eval Section A - 24 Hr Update-Section A only Date of Service: 11/22/23 The patient is an INPATIENT: No The patient has been examined within 24 hours of the surgical procedure. The History & Physical has been completed within 30 days and I have reviewed it.: No Section B - Complete if H&P > 30 days Chief Complaint: Morbid (severe) obesity due to excess calories Relevant Family History (Specify if Yes): No Relevant Social History: None Present Medications: None Medical History: No relevant PMH History of Previous Operations: No relevant previous surgery Allergies: Allergies Allergy/AdvReac Type Severity Reaction Status Date / Time No Known Allergies Allergy Unknown UNKNOWN Verified 11/22/23 08:05 Review of Systems Sugical H&P ROS: Negative: Constitution, Cardiovascular, Respiratory, Neurol ogical, Psychiatric, Hem-Onc, Allergic/Immunologic, Gastrointestinal, Genitourinary, Musculoskeletal, Integumentary, Endocrine and Eyes/Ears/Nose/Throat Exam Surgical H&P Exam: Normal: HEENT, Normal: Heart, Normal: Lungs, Normal: Extremities, Normal: Abdomen, Normal: Skin and Normal: Neurological Plan Diagnosis/Plan: Unchanged (EGD to assess stomach's anatomy. Risks of bleeding and perforation were discussed with the patient and he is in agreement with the plan.) I have reviewed the history and physical and performed a pertinent physical examination on my patient. No changes have occurred unless specified. Time Spent With Patient Time: Total time managing care of this patient today ____ minutes.
--- NOTE | 2023-11-22 08:52 | P.BOP_ITS ---
Brief Operative Note Date of Service: 11/22/23 Pre-op diagnosis: Obesity Post-op diagnosis: same Procedure: PROCEDURE DATE: 11/22/2023 PREOPERATIVE DIAGNOSIS: Obesity POSTOPERATIVE DIAGNOSIS: ?Same as above. 1) gastritis PROCEDURE: [id number] with biopsies Surgeon: ?Adria Bentley M.D.. Ph.D. Dispute Resolution Analyst: None ? Anesthesia: IV sedation Estimated blood loss: ?Minimal FINDINGS AND PROCEDURE: ? OPERATIVE INDICATIONS: ?The patient is a 33 year old female known to me who is interested in bariatric surgery. Based on this information I recommended an upper endoscopy to evaluate the patient's symptoms. Risks and complications of the surgery were discussed with the patient in advance particularly the possibility of perforation or bleeding that may require surgical intervention. The patient understood the risks and was in agreement with the plan. ? PROCEDURE: After informed consent was obtained by the patient, the patient was ?transferred to the Operating Room and was placed in the supine position.? After successful induction of IV sedation, a mouth block was inserted and the patient was placed in the left lateral decubitus position. An upper endoscopy was performed next, the oropharynx and esophagus appeared within the normal limits. There was no hiatal hernia. The z-line was smooth. Two biopsies were obtained from the distal esophagus 2-3 cm proximal to the GE junction and two additional biopsies from the GE junction. The stomach was entered and it appeared to be of normal size. There was mild gastritis at distal antrum. There was no stricture or ulcer. A biopsy was obtained from the gastric fundus and antrum. No significant bleeding was noted from any of the biopsy sites. The scope was then advanced into the duodenum which appeared to be normal as well. Retroflexion of the scope revealed a normal GE junction. At that point the duodenum ?and the stomach were decompressed and the scope was withdrawn from the patient's mouth. The patient extubated and was transferred in stable condition to the Recovery Room for further care. I was present and performed all steps of the procedure. There were no residents to assist with this case. Adria Bentley M.D., Ph.D. Surgeon: Efrain Bentley MD Anesthesia: MAC Was an Dispute Resolution Analyst used for this Procedure?: No Estimated blood loss (mL): 0 IV fluids (mL): 400 Urine output (mL): 0 (No Cabrera to record output) Pathology: other (1) antrum x1, 2) fundus x1, 3) GE junction x2, 4) distal esophagus x2) Condition: stable Disposition: PACU
[2023-11-22 09:16] VITALS: BP 124/77; PULSE 80; RESP 16; TEMP 36.1; O2SAT 96
[2023-11-22 09:33] VITALS: BP 144/86; PULSE 73; RESP 18; TEMP 36.1; O2SAT 98
== END 2023-11-22 10:08 | disposition home or self-care (01) ==
PROVIDERS: Nurse Practitioner; PCP Internal Medicine; Visit Provider Surgery
PROC: 0DJ08ZZ Inspection of Upper Intestinal Tract, Via Natural or Artificial Opening Endoscopic (ICD-10-PCS; CPT 43235; principal; 2023-11-22 08:50)
DX: E66.01 Morbid (severe) obesity due to excess calories (principal); Z68.41 Body mass index [BMI] 40.0-44.9, adult; K29.60 Other gastritis without bleeding; I10 Essential (primary) hypertension; G47.33 Obstructive sleep apnea (adult) (pediatric); Z79.899 Other long term (current) drug therapy
CPT/HCPCS: 43239; 81025; 88305; 88313; 88342; J1596; J2250; J2704

== ENCOUNTER → 2023-11-22 07:39 | Outpatient (BNV) | payer MEDICAID, SELFPAY | PROVIDERS: PCP Internal Medicine; Visit Provider Surgery | DX: E66.01 Morbid (severe) obesity due to excess calories (principal); Z68.41 Body mass index [BMI] 40.0-44.9, adult; K29.70 Gastritis, unspecified, without bleeding | CPT/HCPCS: 43239 ==

== ENCOUNTER 2023-12-06 08:11 | Outpatient (REF) | payer MEDICAID, SELFPAY ==
--- NOTE | ~2023-12-06 | US_ITS ---
EXAMINATION: US COMPLETE ABDOMEN WITH LIVER ELASTOGRAPHY CLINICAL INFORMATION: Obesity. COMPARISON: None available. TECHNIQUE: Real-time imaging of the abdominal viscera. Noninvasive ultrasound liver fibrosis assessment is performed using Sveta ElastPQ point quantification shear wave elastography (2D-SWE) with a C5-2 MHz transducer. Multiple elastography samples are obtained. FINDINGS: PANCREAS: Limited. The visualized pancreatic head and body are normal in appearance. The remainder of the pancreas is obscured from visualization by the overlying bowel gas. ABDOMINAL AORTA: The proximal, middle, and distal aortic segments are normal in caliber. INFERIOR VENA CAVA: Visualized portions are normal. LIVER: The liver demonstrates normal size, contour and increased echogenicity. No focal lesion or intrahepatic biliary duct dilatation. The right lobe measures 15.8 cm in length. The left lobe measures 7.7 cm in length. Portal flow is towards the liver (hepatopetal). Shear wave liver elastography median stiffness is 1.76 m/s (reference: normal median stiffness is 1.3 m/s or less). IQR/median stiffness to assess sampling precision is 0.14 (reference: good quality data set is IQR/median stiffness of 0.15 or less). GALLBLADDER: Normal. The gallbladder is physiologically distended without evidence of stones, sludge, polyps, wall thickening or pericholecystic fluid. COMMON BILE DUCT: Visualization limited. Normal in caliber measuring 0.5 cm in diameter. RIGHT KIDNEY: Normal. No hydronephrosis. No renal calculi or focal parenchymal lesions. The kidney measures 11.2 cm in maximum dimension. LEFT KIDNEY: Normal. No hydronephrosis. No renal calculi or focal parenchymal lesions. The kidney measures 11.0 cm in maximum dimension. SPLEEN: Normal. The spleen measures 11.0 cm in maximum dimension. FREE FLUID: None. US/US abdomen comp w elastography IMPRESSION: 1. There is generalized increase in hepatic echotexture, consistent with fatty infiltration or hepatocellular disease. Please correlate clinically. No focal hepatic mass or intrahepatic biliary dilatation is seen. 2. Liver elastography: Measurements are suggestive of compensated advanced chronic liver disease but need further test for confirmation. 3. Technically limited ultrasound examination of the pancreas and common bile duct. REFERENCE: Society of Radiologists in Ultrasound Liver Stiffness Thresholds (2020): LIVER STIFFNESS THRESHOLDS: *Liver Stiffness equal or less than 1.3 m/s: High probability of being normal. *Liver Stiffness less than 1.7 m/s: In the absence of other known clinical signs, rules out compensated advanced chronic liver disease. *Liver Stiffness 1.7-2.1 m/s: Suggestive of compensated advanced chronic liver disease but need further test for confirmation. *Liver Stiffness over 2.1 m/s: Rules in compensated advanced chronic liver disease. *Liver Stiffness over 2.4 m/s: Suggestive of clinically significant portal hypertension. QUALITY OF DATA SET: *IQR/Median value equal or less than 0.15 implies a quality data set. *IQR/Median value over 0.15 implies a poor quality data set. SIGNIFICANT CHANGE FROM PRIOR EXAM: Significant change if liver stiffness measurement is 10% or greater from prior exam. OTHER CONSIDERATIONS: The stage of liver fibrosis may be overestimated in the setting of acute hepatitis, liver inflammation, elevated liver function tests, hepatic vascular congestion, obstructive cholestasis, non-fasting state, and infiltrative diseases such as amyloidosis and lymphoma. In some patients with NAFLD, the liver stiffness thresholds for compensated advanced chronic liver disease may be lower. In causes other than viral hepatitis and NAFLD, liver stiffness thresholds are not well established.
--- NOTE | ~2023-12-06 | XR_ITS ---
EXAMINATION: XR CHEST CLINICAL INFORMATION: Morbid severe obesity due to excess calories COMPARISON: None available. TECHNIQUE: 2 views of the chest were obtained. FINDINGS: Prominence of the right cardiac border. Correlation with clinical exam recommended to determine further management including possible additional imaging. There is no gross pneumothorax. No pleural effusion. No focal consolidation to suggest pneumonia. XR/XR chest 2V IMPRESSION: Prominence of the right cardiac border. Correlation with clinical exam recommended to determine further management including possible additional imaging. Direct correlation with prior images is recommended and if prior images are provided, an addendum will be dictated.
[2023-12-06 09:11] LABS: MANUAL DIFF FLAG NO
--- NOTE | 2023-12-06 09:15 | ECG_ITS ---
Test Reason : MORBID OBESITY Blood Pressure : / mmHG Vent. Rate : 081 BPM Atrial Rate : 081 BPM P-R Int : 122 ms QRS Dur : 084 ms QT Int : 382 ms P-R-T Axes : 024 012 003 degrees QTc Int : 443 ms Normal sinus rhythm Normal ECG No previous ECGs available Referred By: Efrain Bentley Electronically Signed By:ESPERANZA TERAN MD
[2023-12-06 09:42] LABS: Basophils Percent Auto 0.5 % (0-2); Eosinophils Absolute Auto 0.3 X10*3/uL (0.0-0.4); Eosinophils Percent Auto 4.5 % (0-4); Hematocrit 40.4 % (37.0-47.0); Hemoglobin 13.4 g/dl (12.0-16.0); Imm Gran Abs Auto 0.01 X10*3/uL (0.00-0.03); Imm Gran Pct Auto 0.2 % (0.0-0.4); Lymphocytes Absolute Auto 1.9 X10*3/uL (1.2-4.9); Lymphocytes Percent Auto 31.3 % (20-40); Mean Corpuscular HGB Conc 33.2 g/dl (31.0-35.0); Mean Corpuscular Hemoglobin 28.2 pg (27.0-33.0); Mean Corpuscular Volume 85.1 fL (80.0-98.0); Mean Platelet Volume 11.1 fL (9.4-12.3); Monocytes Absolute Auto 0.4 X10*3/uL (0.1-1.2); Monocytes Percent Auto 6.6 % (2-11); Neutrophils Absolute Auto 3.4 x10*3/uL (2.0-8.3); Neutrophils Percent Auto 56.9 % (45-73); Platelet Count 270 X10*3/uL (160-400); Red Blood Count 4.75 X10*6/uL (4.20-5.50); Red Cell Distribution Width 12.9 % (11.0-16.0); White Blood Count 5.9 X10*3/uL (4.8-10.8)
[2023-12-06 09:54] LABS: Estimated Average Glucose 100 mg/dL; Hemoglobin A1c % 5.1 % (<6.0)
[2023-12-06 10:23] LABS: Alanine Aminotransferase 27 U/L (0-31); Albumin Level 3.9 g/dL (3.5-5.0); Alkaline Phosphatase 74 U/L (39-117); Anion Gap 13 (12-20); Aspartate Amino Transferase 19 U/L (5-31); Bilirubin Total 0.4 mg/dL (0.0-1.0); Blood Urea Nitrogen 10 mg/dL (9-16); C Reactive Protein 0.41 mg/dL (< or = 0.50); Calcium 9.2 mg/dL (8.4-10.2); Carbon Dioxide 25 mmol/L (22-29); Chloride 105 mmol/L (96-108); Cholesterol 123 mg/dL (<200); Estimated Glomerular Filt Rate > 60; Glucose Random 92 mg/dL (60-115); HDL Cholesterol 34 mg/dL (>40); Iron 60 mcg/dL (30-160); LDL Cholesterol Calculated 81 mg/dL (<100); Percent Iron Saturation 22 % (15-50); Potassium 3.6 mmol/L (3.3-5.1); Sodium 139 mmol/L (135-145); Total Iron Binding Capacity 270 mcg/dL (228-428); Total Protein 6.8 g/dL (6.5-8.0); Triglycerides 44 mg/dL (<150); Unsaturated Iron Binding 210 ug/dL
[2023-12-06 10:38] LABS: Ferritin 55 ng/mL (10-122); TSH reflex Free T4 0.56 uIU/mL (0.32-4.0); Vitamin D 25-OH Total 19.5 ng/mL (>30)
[2023-12-06 11:12] LABS: Insulin 15 uU/mL (2-29)
[2023-12-06 11:21] LABS: Folate 9.3 ng/mL (> or = 4.0); Vitamin B12 453 pg/mL (200-900)
[2023-12-09 04:43] LABS: Zinc 67 mcg/dL (60-130)
[2023-12-09 23:44] LABS: Vitamin A 24 mcg/dL (38-98)
[2023-12-11 12:39] LABS: Vitamin B1 <6 nmol/L (8-30)
== END 2023-12-06 08:12 | disposition home or self-care (01) ==
LOC: HO.US 08:11
PROVIDERS: PCP Internal Medicine; Visit Provider Surgery
DX: G47.33 Obstructive sleep apnea (adult) (pediatric) (principal); E66.01 Morbid (severe) obesity due to excess calories; I10 Essential (primary) hypertension
CPT/HCPCS: 36415; 71046; 76700; 76981; 80053; 80061; 82306; 82607; 82728; 82746; 83036; 83525; 83540; 84425; 84443; 84590; 84630; 85025; 86140; 93005; 95806

== ENCOUNTER → 2023-12-06 09:15 | Outpatient (BNV) | payer MEDICAID, SELFPAY | PROVIDERS: PCP Internal Medicine; Visit Provider Internal Medicine Cardiovascular Disease | DX: I10 Essential (primary) hypertension (principal); E66.01 Morbid (severe) obesity due to excess calories; Z01.810 Encounter for preprocedural cardiovascular examination | CPT/HCPCS: 93010 ==

== ENCOUNTER → 2023-12-06 09:32 | Outpatient (BNV) | payer MEDICAID, SELFPAY | PROVIDERS: PCP Internal Medicine; Visit Provider Internal Medicine | DX: R06.83 Snoring (principal) | CPT/HCPCS: 95806 ==

== ENCOUNTER 2023-12-25 10:06 | Outpatient (REF) | payer MEDICAID, SELFPAY ==
--- NOTE | ~2023-12-25 | FL_ITS ---
EXAMINATION: XR FLUOROSCOPY UPPER GI WITH AIR CLINICAL INFORMATION: Preop evaluation prior to bariatric surgery COMPARISON: None TECHNIQUE: Fluoroscopic air contrast upper GI examination was performed utilizing standard techniques with thin and thick barium and effervescent granules. Numerous spot images were obtained. FINDINGS: Dual and single contrast images of the esophagus demonstrate normal caliber, contour, and mucosal pattern. No evidence of stricture, mass, or ulcerations identified. Esophageal peristalsis was normal. A very small type I hiatal hernia is present. A small amount of gastroesophageal reflux is seen in the distal esophagus. Dual contrast and single contrast images of the stomach demonstrated a normal contour. Evaluation of the gastric mucosa is mildly limited due to lack of distention from poor tolerance of the effervescent granules. No obvious masses or ulcerations are seen. Normal fold pattern. Contrast freely passed into the gastric antrum and duodenal bulb without delay. Single and air-contrast images of the duodenal bulb demonstrate no abnormality. The duodenal sweep has a normal appearance, course, and mucosal fold appearance. No malrotation. The imaged proximal jejunum has a normal fold pattern and caliber. FLUOROSCOPY TIME: 4 minutes 15 seconds Number of Spot Images: 15 Number of Cine: 9 DOSE AREA PRODUCT: 3392 uGy-m2 (microgray-meter squared) FL/FL upper GI w air IMPRESSION: 1. Very small type I hiatal hernia 2. Mild gastroesophageal reflux 3. Limited evaluation of the gastric mucosa due to lack of distention from poor tolerance of the effervescent granules. No obvious masses or ulcerations are seen. Recommend correlation with recent EGD. This procedure was performed by Parish Shahid PA-C, and supervised by Dr. Márquez
== END 2023-12-25 10:07 | disposition home or self-care (01) ==
LOC: HO.XRAY 10:06
PROVIDERS: PCP Internal Medicine; Visit Provider Surgery
DX: E66.01 Morbid (severe) obesity due to excess calories (principal); I10 Essential (primary) hypertension; G47.33 Obstructive sleep apnea (adult) (pediatric)
CPT/HCPCS: 74246

== ENCOUNTER → 2023-12-25 10:10 | Outpatient (BNV) | payer MEDICAID, SELFPAY | PROVIDERS: PCP Internal Medicine; Visit Provider Physician Assistant Surgical | DX: E66.01 Morbid (severe) obesity due to excess calories (principal); Z01.818 Encounter for other preprocedural examination | CPT/HCPCS: 74246 ==

== ENCOUNTER 2024-02-27 14:51 | Outpatient (AMB) | payer MEDICAID, SELFPAY ==
[2024-02-27 12:39] VITALS: BMI 37.9
--- NOTE | 2024-02-27 12:39 | A.OFFVIS_ITS ---
VS Expanded 02/27/24 12:39 Height 5 ft 3 in Weight 214 lb BMI 37.9 Body Fat % 48.2 Body Fat Mass 103.1 Fat Free Mass 110.8 Visceral Fat Rating 19 Body Water % 35.5 Body Water Mass 75.9 Muscle Mass/Score 104.2 Basal Metabolic Rate/Score 1,456 Intake Visit Reasons: (tv)SWL f/u Allergies No Known Allergies Allergy (Unknown, Verified 11/22/23 08:05) UNKNOWN HPI Comments Details: Initial weight on 10/25/23 was 226 with a BMI of 40. Weight today is 214 pounds with a BMI of 37.9. She has gained 3.2 pounds since last being seen on 01/03/24. Weight loss of 12 pounds or 5.3 % TBWL. She states that she had a routine and then changed her job and was unable to continue the meal plan. Has not done anything meal plan: Isopure [employer] protein, (1 scoop is 20 gm protein) shakes (1/2 scoop in 8oz water each) at 8am-10am and 2pm-4pm 1 protein bar (Atkins bar) at 11am-1pm dinner at 7pm (8 forks of protein and 8 forks of salad/vegetables). Another shake at 7pm-9pm Drinking 40 oz total per day exercise plan: walking outside is going to consider [facility] membership. - PF [facility] Medical History Gestational diabetes Obstructive sleep apnea on CPAP Hypertension Morbid obesity Obstetrical visit for first Abnormal glucose affecting Obesity (BMI 30-39.9) Abnormal Pap smear of cervix Surgical History No history of previous surgery Family History Maternal Grandfather Diabetes mellitus Maternal Grandmother HTN (hypertension) Mother HTN (hypertension) Social History Alcohol intake: never Patient Tobacco Use Status: Never used Tobacco Gender identity: Female Female Reproductive History Menstrual Age of Menarche: 10 Telehealth Telehealth Telehealth Platform: Telephone Location of provider rendering services: practice address Location of patient: address on file Patient Identification confirmed using: Name, : Yes Telehealth method: voice only Patient verbally consented to treatment: Yes Patient verbally consented to billing insurance company: Yes Patient informed of any privacy concerns related to visit: Yes Minutes spent on Phone/Video with Pt.: 15 Assessment & Plan Assessment & Plan (1) Obesity (BMI 30-39.9): Code(s): E66.9 - Obesity, unspecified Category: Medical Plan: Patient will be given another opportunity to be successful. She has the tools to succeed, she is going to join the gym and follow the meal plan as suggested. I encouraged her to send her weight weekly and text with any questions or concerns. We agreed that she will be given another opportunity to succeed as mentioned above and if she is unable or unwilling to do so over the next month, she will consider withdrawing from the program at this time until there is a time where she can commit.
== END 2024-02-27 14:57 | disposition home or self-care (01) ==
LOC: HO.HBS 14:51
PROVIDERS: PCP Internal Medicine; Visit Provider Physician Assistant Surgical
DX: E66.9 Obesity, unspecified (principal)
CPT/HCPCS: 99213

== ENCOUNTER → 2024-02-27 14:51 | Outpatient (BNVA) | payer MEDICAID, SELFPAY | PROVIDERS: PCP Internal Medicine; Visit Provider Physician Assistant Surgical ==